=== PATIENT | female | born 1990 | race African-American/Black ===

== ENCOUNTER 2021-01-29 20:02 | Emergency (ER) | payer MEDICAID ==
[~2021-01-29] VITALS: Ht 154.9 cm; Wt 100.0 kg
[2021-01-29 20:30] VITALS: BP 137/72
--- NOTE | 2021-01-29 20:34 | PHYS DOC ---
General Adult EDM: Chief Complaint: FOOT INJURY PAIN HPI: HPI: Patient is a 30-year-old female presenting for left ankle/foot pain. Onset was this morning at 10 AM. Reports getting up out of bed and tripping over close on the ground suffering an inversion type injury in which her left third, fourth and fifth digits rolled under her foot. She did not hear any cracks or breaks. She has been ambulatory since this event this morning but reports great difficulty and pain with weightbearing. There is been associated swelling and she has pain at base of fifth metatarsal which concerned her prompting her to come in for evaluation. She did not fall and hit head, no loss of consciousn ess, no blood thinner use. She is otherwise been at her baseline health and has no other complaints Review of Systems: Review of Systems: Fourteen body systems of review of systems have been reviewed. See HPI for pertinent positives and negative responses, other waddell all other systems are negative, non-pertinent or non-contributory Heart Score: C/O Chest Pain: No Risk Factors: Risk Factors: DM, Current or recent (<one month) smoker, HTN, HLP, family history of CAD, obesity. Risk Scores: Score 0 - 3: 2.5% MACE over next 6 weeks - Discharge Home Score 4 - 6: 20.3% MACE over next 6 weeks - Admit for Clinical Observation Score 7 - 10: 72.7% MACE over next 6 weeks - Early Invasive Strategies Physical Exam: PE: Constitutional: Well developed, well nourished, no acute distress, non-toxic appearance. HENT: Normocephalic, atraumatic, bilateral external ears normal, oropharynx moist, no oral exudates, nose normal. Eyes: PERRLA, EOMI, conjunctiva normal, no discharge. Neck: Normal range of motion, no tenderness, supple, no stridor. Cardiovascular: Heart rate regular per monitor Lungs & Thorax: No respiratory distress or accessory muscle use, bilateral chest rise Abdomen: Abdomen soft, non-tender, bowel sounds present in all quadrants, no guarding or rebound, nonacute abdomen. Skin: Warm, dry, no erythema, no rash. Back: No tenderness, no CVA tenderness. Extremities: No cyanosis, no clubbing, ROM impaired of left foot due to pain but no gross abnormalities present. Neurovascularly intact. Positive [place] ankle rule due to pain at left lateral malleolus and positive [place] foot rules due to pain at base of fifth metatarsal with associated pain and soft tissue swelling around third, fourth and fifth toes Neurologic: Alert and oriented X 3, normal motor & sensory function, no focal deficits noted. Psychologic: Affect normal, judgement normal, mood normal. Current Patient Data: Vital Signs: Vital Signs Date Time Temp Pulse Resp B/P (MAP) Pulse Ox O2 Delivery O2 Flow Rate FiO2 01/29/21 20:07 97.5 120 18 140/93 (109) 96 Room Air 97.5 EKG: EKG: [] Radiology/Procedures: Radiology/Procedures: EXAMINATION: XR EXAM OF ANKLE_LEFT 3V, XR FOOT_LEFT 3 VIEWS CLINICAL HISTORY: Inversion injury with base of 5th metatarsal and 3-5th digit pain TECHNIQUE: XR EXAM OF ANKLE_LEFT 3V, XR FOOT_LEFT 3 VIEWS Number of Images/Views: 3 each COMPARISON: None FINDINGS: Mildly angulated fractures through the proximal aspect of the fourth and fifth proximal phalanges. Joint spaces and alignment maintained. Tiny plantar calcaneal enthesophyte. Soft tissue swelling through the ankle and forefoot. IMPRESSION: Mildly angulated fourth and fifth proximal phalanx fractures. Electronically signed by: Kota Wade DO (01/29/2021 10:32 PM) [facility] Course & Med Decision Making: Course & Med Decision Making VSS. HPI and PE non-concerning for emergent/surgical pathology. ER workup and radiographs concerning for Lt foot fracture not requiring immediate fixation/hospitalization Lt foot splinted. Non-weight bearing and continued supportive care advised with close outpatient ortho therapeutic specialist follow-up. Patient cites having previously scheduled PCP visit next business day for continuity of care, states she presented to ER as she couldn't wait that long for evaluation Crutches given. Advised to present for follow-up to then be referred to therapeutic specialist. Pain controlled, advised continued ice, NSAID/Tylenol use for pain. NV/motor/sensory functions intact on recheck. Strict return precautions d iscussed with good understanding, all questions and concerns addressed prior to departure Dylan Disclaimer: Dylan Disclaimer: This electronic medical record was generated, in whole or in part, using a voice recognition dictation system. Departure Departure Impression: Primary Impression: Fracture of phalanx of left foot, closed Disposition: HOME / SELF CARE / HOMELESS Condition: STABLE Referrals: NO PCP (PCP) MARLA CHILDERS MD Patient Instructions: Cast or Splint Care, Toe Fracture with [facility]hab[facility] Additional Instructions: As discussed prior to ER departure, you were diagnosed with x2 fractures of your fourth and fifth toes that are likely the cause of your presenting symptoms today. As discussed, they are mildly angulated fractures that do not require emergent fixation. With that said, it is pertinent that you contact the attached orthopedic physician, Dr. Childers to review your recent diagnosis of "mildly angulated fourth and fifth proximal phalanx fractures". As discussed, there might be indication for you to follow-up in the outpatient setting with a therapeutic specialist as determined by Dr. Childers. I would call their office first thing in the morning to review your ER visit this evening and discuss next steps of care. If any concerning signs or symptoms present prior to outpatient follow-up please do not hesitate to come back for repeat evaluation. It was a pleasure to take care of you and I wish you a speedy recovery going forward MERVIN CARVALHO DO January 29, 2021 20:34
--- NOTE | 2021-01-29 22:34 | RAD ---
EXAMINATION: XR EXAM OF ANKLE_LEFT 3V, XR FOOT_LEFT 3 VIEWS CLINICAL HISTORY: Inversion injury with base of 5th metatarsal and 3-5th digit pain TECHNIQUE: XR EXAM OF ANKLE_LEFT 3V, XR FOOT_LEFT 3 VIEWS Number of Images/Views: 3 each COMPARISON: None FINDINGS: Mildly angulated fractures through the proximal aspect of the fourth and fifth proximal phalanges. Portia int spaces and alignment maintained. Tiny plantar calcaneal enthesophyte. Soft tissue swelling throug h the ankle and forefoot. IMPRESSION: Mildly angulated fourth and fifth proximal phalanx fractures. Electronically signed by: Kota Wade DO (01/29/2021 10:32 PM) [facility]
== END 2021-01-29 23:55 | disposition home or self-care (01) ==
LOC: ER 20:02
DX: S92.512A Displaced fracture of proximal phalanx of left lesser toe(s), initial encounter for closed fracture (principal); X50.9XXA Other and unspecified overexertion or strenuous movements or postures, initial encounter; Y93.89 Activity, other specified; Y92.89 Other specified places as the place of occurrence of the external cause; Y99.8 Other external cause status
CPT/HCPCS: 29515; 73610; 73630; 99284